=== PATIENT | female | born 1995 | race Caucasian/White ===

== ENCOUNTER 2017-01-18 14:57 | Emergency (ER) | payer SELFPAY ==
--- NOTE | 2017-01-18 15:09 | ED Physician Documentation ---
General Adult - HISTORIAN Historian: patient - HPI Stated Complaint: shortness of breath Chief Complaint: Dyspnea Onset: minutes (30) Timing: better Severity: mild Modifying Factors: she feels better in the ER Context: pain with flexion Quality: mild pain she states with movement of toe Location: right lower leg and toe Further Comments: no Last known Well Date: 01/18/17 Last Known Well Time: 14:00 Last known Well Code/Unknown Code: Unknown - PAST HX Past History: none Other History: none Surgeries/Procedures: none Immunizations: referred to PCP Allergies/Adverse Reactions: Allergies Allergy/AdvReac Type Severity Reaction Status Date / Time diphenhydramine HCl Allergy Verified 01/18/17 15:09 [From Benadryl] lidocaine Allergy Verified 01/18/17 15:09 Home Medications: Ambulatory Orders Medication Instructions Recorded NK [NK] 01/18/17 - SOCIAL HX Smoking History: non-smoker Alcohol Use: none Drug Use: none - FAMILY HX Family History: No - REVIEWED ASSESSMENTS Nursing Assessment Reviewed: Yes Vitals Reviewed: Yes Progress - Progress Progress: mild pain relief She reports only pain in "pinky toe" at this point that is an aching - florecita's sign Swelling discussed ED Results Lab/Radiology - Radiology Radiology Impressions: Examination: PA and lateral chest. History: Evaluate lung do. Comparison exam: None provided Findings: PA lateral chest demonstrate a normal cardiac and mediastinal silhouette. No focal infiltrate. No blunting of the costophrenic margins. Osseous structures are appropriate for age. Impression: No acute pulmonary process. Electronically signed on Jan 18, 2017 3:33:53 PM CDT by: Jacoby Masters General Adult Physical Exam - PHYSICAL EXAM GENERAL APPEARANCE: no distress EENT: eye inspection normal NECK: normal inspection RESPIRATORY: no resp distress, chest non-tender, breath sounds normal CVS: reg rate & rhythm, heart sounds normal, equal pulses, no murmur ABDOMEN: soft, no organomegaly, normal bowel sounds SKIN: warm/dry, normal color EXTREMITIES: normal range of motion, tenderness (mild tenderness of right lower leg ) NEURO: oriented X3, CN's nml as tested, motor nml Discharge Clincal Impression: Anxiety, Costochondritis Referrals: Primary Doctor,No [Primary Care Provider] - 2 Days Condition: Stable Disposition: 01 HOME, SELF-CARE Decision to Admit: NO Date of Decison to Admit: 01/18/17
[2017-01-18] MEDS ORDERED: KETOROLAC TROMETHAMINE 60 MG/2 ML VIAL IM ONE (15:12)
[2017-01-18 16:29] VITALS: BP 119/68
--- NOTE | 2017-01-18 17:46 | Diagnostic Imaging Report ---
YOVANI VAZQUEZ [facility] [id number] [facility] [address] [place], [place]. [address] Report Submission Date: Jan 18, 2017 3:33:53 PM CDT Patient Study Name: YEIMI BLAIR Date: Jan 18, 2017 3:12:26 PM CDT Modality Type: CR Gender: F Description: CHEST : 89 Institution: [facility] Physician: YOVANI VAZQUEZ Examination: PA and lateral chest. History: Evaluate lung do. Comparison exam: None provided Findings: PA lateral chest demonstrate a normal cardiac and mediastinal silhouette. No focal infiltrate. No blunting of the costophrenic margins. Osseous structures are appropriate for age. Impression: No acute pulmonary process. Electronically signed on Jan 18, 2017 3:33:53 PM CDT by: Jacoby CHAVIRA
== END 2017-01-18 16:10 | disposition home or self-care (01) ==
LOC: ED 14:57
DX: F41.9 Anxiety disorder, unspecified (principal); M94.0 Chondrocostal junction syndrome [Tietze]
CPT/HCPCS: 71020; J1885; 96372; 99283